=== PATIENT | female | born 1985 | race Hispanic/Latino ===

== ENCOUNTER → 2018-09-24 | Day surgery (SDC) | payer BC ==
[~2018-09-24] MED LIST: FENTANYL CITRATE/PF 100MCG/2 ML INJ ONE; HYOSCYAMINE 0.125 MG TAB ONE; LIDOCAINE HCL 2% LOCAL INJ 5 ML SDV VIAL INJ ONE; MIDAZOLAM HCL 2 MG/2 ML VIAL ONE; PROPOFOL IV EMULSION 10 MG/ML 50 ML VIAL ONE
[2018-09-24 10:28] VITALS: BP 115/78
--- NOTE | 2018-09-24 10:45 | Operative Report ---
DATE OF PROCEDURE: 09/24/2018 SURGEON: Gerardo Peters MD PROCEDURE: Colonoscopy with biopsies and polypectomy. INDICATIONS FOR COLONOSCOPY: History of diverticulitis. MEDICATION: The patient was done under MAC, please see anesthesiologist's note. PROCEDURE IN DETAIL: With the patient in left lateral decubitus position, a flexible fiberoptic Olympus colonoscope was inserted into the rectum with ease and advanced all the way to the cecum. The scope was then withdrawn slowly and mucosa overlying the cecum, ascending colon, transverse colon grossly appeared to be within normal limits. There was a mild segmental colitis involving the descending colon and with that segment appearing almost haustral and biopsies were obtained. Two minute polyps were hot biopsied from the sigmoid colon. The rectum appeared to be within normal limits. The scope was then retroflexed into the distal rectum and small internal hemorrhoids were noted, none of which was actively bleeding. The scope was then straightened out, it was subsequently withdrawn. The patient tolerated procedure well. IMPRESSION: 1. Mild segmental colitis, descending colon. 2. Sigmoid colon polyps x2, hot biopsied. 3. Internal hemorrhoids, none actively bleeding. PLAN: Follow up histology. Initiate Bentyl 10 mg one p.o. t.i.d. Align one p.o. daily. The patient might benefit from a followup colonoscopy in 5-10 years. Gerardo Peters MD [facility] – [place] /[id number]
== END | disposition home or self-care (01) ==
LOC: OR 06:10
PROVIDERS: ATTEND Internal Medicine Gastroenterology
DX: K57.32 Diverticulitis of large intestine without perforation or abscess without bleeding (principal); K63.5 Polyp of colon; K50.10 Crohn's disease of large intestine without complications; K64.8 Other hemorrhoids; Z88.6 Allergy status to analgesic agent; Z88.0 Allergy status to penicillin; Z68.32 Body mass index [BMI] 32.0-32.9, adult
CPT/HCPCS: 36415; 45380; 45384; 84702; J2001; J2250; J2704; J3010